=== PATIENT | male | born 1940 | race Caucasian/White ===

== ENCOUNTER 2016-07-08 07:44 | Outpatient (CLI) | payer MEDICARE ==
[2016-07-08 10:35] LABS: ALT (SGPT) 19 U/L (0-55); AST (SGOT) 24 U/L (5-34); Alkaline Phosphatase 83 U/L (40-150); Anion Gap 15 mmol/L (10-20); BUN (Urea Nitrogen) 23 mg/dL (8.4-25.7); Bilirubin, Direct 0.2 mg/dL (0.1-0.3); Bilirubin, Total 0.5 mg/dL (0.2-1.2); Calc. Creatinine Clearance 0 mL/min (70-130); Calcium 8.8 mg/dL (7.8-10.44); Carbon Dioxide 24 mmol/L (23-31); Chloride 107 mmol/L (98-107); Estimated GFR-MDRD 74; LDL Cholesterol, Calculated 78 mg/dL; Protein, Total 7.1 g/dL (5.8-8.1)
== END 2016-07-08 07:45 | disposition home or self-care (01) ==
LOC: NAV LAB 07:44
PROVIDERS: ATTEND Internal Medicine Cardiovascular Disease
DX: I25.5 Ischemic cardiomyopathy (principal); I34.0 Nonrheumatic mitral (valve) insufficiency; I10 Essential (primary) hypertension
CPT/HCPCS: 36415; 80048; 80061; 80076